=== PATIENT | male | born 1950 | race Caucasian/White ===

== ENCOUNTER 2025-05-24 04:08 | Observation (INO) | payer OTHER ==
[~2025-05-24] VITALS: Ht 175.3 cm; Wt 83.9 kg
[2025-05-24 04:26] LABS: BASOPHILS ABSOLUTE AUTO 0.05 K/mm3 (0.00-0.23); BASOPHILS PERCENT AUTO 0 % (0-2); EOSINOPHILS ABSOLUTE AUTO 0.08 K/mm3 (0.00-0.68); EOSINOPHILS PERCENT AUTO 1 % (0-6); Hematocrit 42.0 % (37.0-53.0); Hemoglobin 14.0 g/dL (13.5-17.5); IMMATURE GRAN ABSOLUTE AUTO 0.08 K/mm3 (0.00-0.10); IMMATURE GRAN PERCENT AUTO 1 % (0-1); LYMPHOCYTES ABSOLUTE AUTO 0.53 K/mm3 (0.84-5.20); LYMPHOCYTES PERCENT AUTO 4 % (21-46); MONOCYTES ABSOLUTE AUTO 1.04 K/mm3 (0.16-1.47); MONOCYTES PERCENT AUTO 8 % (4-13); Mean Corpuscular HGB Conc 33.3 g/dL (31.5-36.5); Mean Corpuscular Volume 87 fL (80-100); NEUTROPHILS ABSOLUTE AUTO 11.79 K/mm3 (1.96-9.15); NEUTROPHILS PERCENT AUTO 87 % (41-73); NRBC ABSOLUTE 0.00 K/mm3 (0.00-0.02); NRBC Auto 0.0 /100 WBC (0.0-0.2); Platelet Count 152 K/mm3 (150-400); RDW Coefficient Variation 14.6 % (11.7-14.2); RDW Standard Deviation 46.4 fL (35.1-46.3)
[2025-05-24 04:52] LABS: Alanine Aminotransfer (ALT/SGP 28.0 U/L (12-78); Albumin, Blood 3.2 g/dL (3.4-5.0); Albumin/Globulin Ratio 0.8 (0.8-1.8); Anion Gap 8.0 mmol/L (3-11); Aspartate Aminotrans (AST/SGOT 30.0 U/L (12-37); Bilirubin, Total 0.5 mg/dL (0.1-1.0); Blood Urea Nitrogen 14.0 mg/dL (8-24); CO2, Blood 25.0 mmol/L (21-32); Calcium, Blood 8.4 mg/dL (8.5-10.1); Chloride, Blood 105.0 mmol/L (98-108); Creatinine, Blood 0.95 mg/dL (0.60-1.20); Globulin, Blood 3.8 g/dL (2.2-4.0); Glucose, Blood 126.0 mg/dL (70-99); Potassium, Blood 3.2 mmol/L (3.5-5.5); Sodium, Blood 135.0 mmol/L (136-145); Total Protein, Blood 7.0 g/dL (6.4-8.2)
[2025-05-24] MEDS ORDERED: NS 1,000 ML IV SCH ×2 (05:20→09:25)
[2025-05-24] MEDS ORDERED: Magnesium Sulf 2 GM/Water 50ML 50 ML IV ONE (07:00)
[2025-05-24] MEDS ORDERED: Piperacillin/Tazobactam Sod 3.375 GM in NS 100 ML IV ONE (08:55)
[2025-05-24 11:08] VITALS: BP 136/83
[2025-05-24] MEDS ORDERED: ELIQUIS5 M2 PO (11:13)
[2025-05-24] MEDS ORDERED: LISI5 PO (11:13)
[2025-05-24] MEDS ORDERED: DILT180 PO (11:14)
[2025-05-24] MEDS ORDERED: FINA5 PO (11:14)
--- NOTE | 2025-05-24 11:25 | NUR ---
ARRIVAL PT ARRIVED TO UNIT FROM PACU. ABLE TO STAND AND TRANSFER, DENIES ANY PAIN OR NAUSEA. JUST REPORTS FREQUENT BOWEL MOVEMENTS. STATES IT HAS BEEN OCCURING SINCE FRIDAY MORNING. DENIES ANY CAUSATIVE INCIDENTS THAT HE CAN RECALL AT THIS TIME. AMBULATING INDEPENDENTLY. ASKED PT TO NOTIFY IF HE HAS MORE INCIDENCES OF DIARRHEA. GIVEN WATER AND CALL LIGHT PROVIDED. DENIES FURTHER NEEDS.
[2025-05-24 15:01] VITALS: BP 137/87
--- NOTE | 2025-05-24 16:15 | NUR ---
SHIFT SUMMARY PT CONTINUES TO DENY PAIN DURING SHIFT. UP INDEPENDENTLY TO BATHROOM WITH FREQUENT LIQUID STOOLS, GREEN/BROWN IN APPEARANCE. PT REPORTS NO NAUSEA AND IS TOLERATING PO WELL AT THIS TIME. CALLS APPROPRIATLY. GI PANEL SENT PENDING RESULTS.
[2025-05-24 17:26] LABS: Campylobacter Sp Detected (NOT DETECT); E. Coli O157 Not Detected (NOT DETECT); Enteroaggregative E. coli-EAEC Not Detected (NOT DETECT); Enteropathogenic E. coli-EPEC Not Detected (NOT DETECT); Enterotoxigenic E. coli-ETEC Not Detected (NOT DETECT); Salmonella Sp Not Detected (NOT DETECT); Shiga Toxin-prod E. coli-STEC Not Detected (NOT DETECT); Shigella/Enteroin E. coli-EIEC Not Detected (NOT DETECT); Vibrio Sp Not Detected (NOT DETECT)
[2025-05-24 20:04] VITALS: BP 145/87
[2025-05-24 22:45] VITALS: BP 145/96
[2025-05-25 04:17] VITALS: BP 144/89
--- NOTE | 2025-05-25 04:32 | NUR ---
SHIFT SUMMARY NO ACUTE CHNAGES OVERNIGHT. VSS, TELE IN USE. TOLERATING ORALS, DENIES N/V. DENIES PAIN. IND IN ROOM. VOIDING. FREQUENT LOOSE BMs. CALL LIGHT IN REACH, BED IN LOWEST POSITION, WILL REPORT TO DAY RN.
[2025-05-25 05:40] LABS: BASOPHILS ABSOLUTE AUTO 0.03 K/mm3 (0.00-0.23); BASOPHILS PERCENT AUTO 0 % (0-2); EOSINOPHILS ABSOLUTE AUTO 0.10 K/mm3 (0.00-0.68); EOSINOPHILS PERCENT AUTO 1 % (0-6); Hematocrit 38.3 % (37.0-53.0); Hemoglobin 13.0 g/dL (13.5-17.5); IMMATURE GRAN ABSOLUTE AUTO 0.04 K/mm3 (0.00-0.10); IMMATURE GRAN PERCENT AUTO 1 % (0-1); LYMPHOCYTES ABSOLUTE AUTO 0.57 K/mm3 (0.84-5.20); LYMPHOCYTES PERCENT AUTO 7 % (21-46); MONOCYTES ABSOLUTE AUTO 0.85 K/mm3 (0.16-1.47); MONOCYTES PERCENT AUTO 10 % (4-13); Mean Corpuscular HGB Conc 33.9 g/dL (31.5-36.5); Mean Corpuscular Volume 86 fL (80-100); NEUTROPHILS ABSOLUTE AUTO 6.55 K/mm3 (1.96-9.15); NEUTROPHILS PERCENT AUTO 81 % (41-73); NRBC ABSOLUTE 0.00 K/mm3 (0.00-0.02); NRBC Auto 0.0 /100 WBC (0.0-0.2); Platelet Count 134 K/mm3 (150-400); RDW Coefficient Variation 14.7 % (11.7-14.2); RDW Standard Deviation 46.5 fL (35.1-46.3)
[2025-05-25 06:22] LABS: Anion Gap 6.0 mmol/L (3-11); Blood Urea Nitrogen 10.0 mg/dL (8-24); CO2, Blood 27.0 mmol/L (21-32); Calcium, Blood 8.4 mg/dL (8.5-10.1); Chloride, Blood 106.0 mmol/L (98-108); Creatinine, Blood 0.94 mg/dL (0.60-1.20); Glucose, Blood 97.0 mg/dL (70-99); Potassium, Blood 3.4 mmol/L (3.5-5.5); Sodium, Blood 136.0 mmol/L (136-145)
[2025-05-25] MEDS ORDERED: Enoxaparin 40 MG/0.4 ML SYR SC SCH (09:00)
[2025-05-25] MEDS ORDERED: Diltiazem HCl 180 MG Cap.CD PO SCH (09:00)
[2025-05-25 09:03] VITALS: BP 142/88
--- NOTE | 2025-05-25 13:13 | NUR ---
DISCHARGE: PACKET PRINTED AND PT EDUCATED. IV DC'D WNL, TIP INTACT. PT LEFT UNIT WITH AROUND [id number]
== END 2025-05-25 13:05 | disposition home or self-care (01) ==
LOC: ER 04:08 → SURS 04:09
PROVIDERS: Emergency Medicine; Student in an Organized Health Care Education/Training Program; ADMIT Hospitalist
DX: A41.9 Sepsis, unspecified organism (principal); A04.5 Campylobacter enteritis; E86.0 Dehydration; E87.6 Hypokalemia; E87.1 Hypo-osmolality and hyponatremia; E86.1 Hypovolemia; R94.31 Abnormal electrocardiogram [ECG] [EKG]; I48.20 Chronic atrial fibrillation, unspecified; I10 Essential (primary) hypertension; N40.0 Benign prostatic hyperplasia without lower urinary tract symptoms; Z79.01 Long term (current) use of anticoagulants; Z79.899 Other long term (current) drug therapy
CPT/HCPCS: 36415; 74177; 80048; 80053; 83605; 83690; 83735; 84132; 85025; 87040; 87507; 93005; 93010; 96365-59; 96366; 96367; 96375; 99285-25; A9270; G0378; J2543; J3475; J3480; J7030; J7050; Q9967